=== PATIENT | male | born 1985 | race Caucasian/White ===

== ENCOUNTER 2025-02-20 13:29 | Emergency (ER) | payer OTHER, SELFPAY ==
[2025-02-20 13:31] VITALS: BP 153/97
[2025-02-20 13:53] LABS: Hematocrit 47.7 % (39.0-52.0); Hemoglobin 17.2 g/dL (13.0-18.0); Mean Corp Hgb Conc. 36.1 g/dL (33.0-37.0); Mean Corpuscular Volume 84.3 fL (80.0-94.0); Nucleated Red Blood Cells % 0 % (-); Platelet Count 231 10^3/uL (130-400); Red Cell Dist. Width 12.3 % (11.5-14.5)
[2025-02-20 14:13] LABS: ALT (SGPT) 46 U/L (0-50); AST (SGOT) 29 U/L (17-59); Albumin 5.0 g/dl (3.5-5.0); Alkaline Phosphatase 59 U/L (38-126); Blood Urea Nitrogen 13 mg/dl (9-20); Calcium 9.4 mg/dl (8.4-10.2); Carbon Dioxide 26 mmol/L (22-30); Chloride 103 mmol/L (98-107); Glucose 106 mg/dl (70-99); Potassium 4.2 mmol/L (3.5-5.1); Sodium 137 mmol/L (135-145); Total Protein 7.8 g/dl (6.3-8.2); eGFR > 60.00
[2025-02-20 14:25] LABS: Troponin I < 0.012 ng/ml
--- NOTE | 2025-02-20 17:39 | ED.GENMED ---
History of Present Illness
General
Chief Complaint: Chest Pain
Source: patient
Exam Limitations: none
Time Seen by Provider: 02/20/25 16:31
Nursing documentation reviewed up to this point in time: agreed with
History of Present Illness
History of Present Illness:
39-year-old male past medical history of previous thyroid issue presenting to the emergency department today with concerns of chest pain shortness of breath sent from urgent care. Had a right bundle branch block while there but otherwise no
emergent or ischemic changes on EKG. Pain is mainly to the left side of the chest is now very minimal described as achiness. No associated nausea vomiting or diaphoresis. No known cardiac issues
Review of Systems
Review of Systems
Allergies reviewed?: Yes
All Other Systems: ROS reviewed and negative except as documented in HPI and ROS
Phy Exam
Physical Exam
Physical Exam:
GENERAL: Alert , in no apparent distress
EYE: pupils equal and reactive
NECK: Supple, no significant adenopathy.
ENT: o/p clr, mmm.
CARDIAC: Regular rate and rhythm .
LUNGS: Clear breath sounds bilaterally, no acute respiratory distress, no wheezes/rales/rhonchi
ABDOMEN: Soft, without focal tenderness, no r/g, no cvat
NEUROLOGICAL: Alert and oriented, no focal neuro deficits
SKIN: Warm and dry, skin intact.
MUSCULOSKELETAL: No edema, well perfused.
PSYCH: Normal and appropriate interaction.
Scores
Heart Score for Chest Pain Patients
STEMI patient?: No
History: Slightly or Non-Suspicious
ECG: Normal
Age: </= 45 years
Risk Factors: No Risk Factors
Troponin: </= Normal Limit
Heart Score for Chest Pain Patients: 0
Heart Score Risk: 2.5% MACE over next 6 weeks
Course
Orders/Labs/Results
Orders:
Orders
02/20/25 13:31
Electrocardiogram (*1) Urgent
Reason for Study: Chest Pain
EKG- Treatment ONCE
02/20/25 13:45
Complete Blood Count/With Diff Urgent
Comprehensive Metabolic Panel Urgent
Free T4 Urgent
Comment: ADD ON
Pro-BNP [NT-proBNP] Urgent
TSH Urgent
Comment: ADD ON
Troponin I Urgent
02/20/25 16:55
Chest [CR Chest - 2 Views ] Urgent
Comment:
Reason For Exam: cp sob
02/20/25 17:17
Add On- LAB Urgent
Tests Added?: tsh free t4
Abnormal Lab Results
02/20/25
13:45
Glucose 106 H mg/dl
(70-99)
02/20/25 13:45
02/20/25 13:45
Vital Signs
Initial and Last Documented VS:
Initial Vital Signs
Temp Pulse Resp BP Pulse Ox
97.7 F 60 20 153/97 100
02/20/25 13:31 02/20/25 13:31 02/20/25 13:31 02/20/25 13:31 02/20/25 13:31
Last Documented Vital Signs
Temp Pulse Resp BP Pulse Ox
97.7 F 68 16 145/74 98
02/20/25 13:31 02/20/25 17:46 02/20/25 17:46 02/20/25 17:46 02/20/25 17:46
MDM/Problems Addressed
MDM/Problems Addressed:
39-year-old male presenting to the emergency department today with concerns of chest pain shortness of breath ongoing over the past few days was seen in urgent care and sent to the ER. Here for right bundle branch block but no signs of ischemic
changes or arrhythmia. Here labs unremarkable troponin negative BNP negative chest x-ray normal. No evidence of emergent process advised for close cardiology follow-up. Return precautions given.
*Pulse Oximetry
SaO2: 100
Oxygen Mode of Delivery: Room air
Patient hypoxic: no (98)
*Critical Care Note
Total Time (30-74mins, 75-104mins- exclusive of procedures): Not Applicable
ED Attending Note
-
Portions of this chart may have been created with voice recognition software.� Occasional wrong word or��sound alike� substitutions may have occurred due to the inherent limitations of voice recognition software.
Discharge Plan
Departure
Patient Disposition: Home (Routine Discharge)
Date of Disposition: 02/20/25
Time of Disposition: 17:39
Patient with high blood pressure during this ER visit?: No
Condition: Good
Covid-19: Not Applicable
Discharge Problem:
Chest pain
Instructions: Chest Pain CBC Follow Up
Referrals:
Gurjit Killian MD [Active, Cardiology]
Maverick Hampton MD [Family Provider, Family Practice]
Activity Restrictions/Additional Instructions:
You came to the emergency department today with concerns of chest pain. Here your reassuring assessment. Please follow closely with cardiology. Return for any worsening, new or concerning symptoms.
Interventions
Interventions:
*General Assessment Last Done: 02/20/25 13:31
*Neglect/Abuse Screening Last Done: 02/20/25 13:31
*ED COVID-19 Vaccine History Last Done: 02/20/25 16:57
*ED Influenza Vaccine History Last Done: 02/20/25 16:57
[facility] Risk Assessment Tool Last Done: 02/20/25 16:57
*Risk Screen - Suicide (C-SSRS) Last Done: 02/20/25 13:31
*Nursing Disposition Last Done: 02/20/25 17:49
ED- Cardiac Assessment Last Done: 02/20/25 16:57
Discharge Date and Time
Discharge Date/Time: 02/20/25 17:49
Print Language: [id number]
[2025-02-20 17:46] VITALS: BP 145/74
[2025-02-20 18:25] LABS: TSH 1.24 uIU/ml (0.47-4.68)
== END 2025-02-20 17:49 | disposition home or self-care (01) ==
LOC: EMR 13:29
PROVIDERS: EMERGENCY PHYSICIAN Student in an Organized Health Care Education/Training Program; FAMILY PHYSICIAN Family Medicine
DX: R07.9 Chest pain, unspecified (principal); I45.10 Unspecified right bundle-branch block
CPT/HCPCS: 99285; 71046; 80053; 83880; 84439; 84443; 84484; 85025; 93005